=== PATIENT | female | born 1970 | race Caucasian/White ===

== ENCOUNTER 2019-04-24 09:42 | Outpatient (CLI) | payer MEDICARE, MEDICAID, SELFPAY ==
--- NOTE | 2019-04-24 09:55 | ECG_ITS ---
Measurements Intervals [place] Rate: 72 P: 29 [place]: 154 QRS: 68 QRSD: 89 T: 43 QT: 369 QTc: 406 Interpretive Statements SINUS RHYTHM NORMAL ECG Electronically Signed On 04-24-2019 11:16:22 [employer]LECTRIC [employer]OWER [employer] EXAMINER by Elvin Miranda D.O.
[2019-04-24 10:13] LABS: Blood Urea Nitrogen 22 mg/dL (7-17); Calcium 9.4 mg/dL (8.4-10.2); Carbon Dioxide 26 mmol/L (22-30); Chloride 108 mmol/L (98-107); Estimated Glomerular Filt Rate 52; Glucose 98 mg/dL (65-105); Potassium 4.5 mmol/L (3.4-5.0); Sodium 142 mmol/L (137-145)
== END 2019-04-24 09:43 | disposition home or self-care (01) ==
PROVIDERS: PCP Student in an Organized Health Care Education/Training Program; Visit Provider Anesthesiology
DX: E78.00 Pure hypercholesterolemia, unspecified (principal); Z51.81 Encounter for therapeutic drug level monitoring
CPT/HCPCS: 36415; 80048; 93005

== ENCOUNTER 2019-04-29 02:02 | Day surgery (SDC) | payer MEDICARE, MEDICAID, SELFPAY ==
[2019-04-23 08:10] VITALS: BMI 30.7
--- NOTE | 2019-04-28 15:52 | HP_ITS ---
DATE OF SERVICE: HISTORY: A 49-year-old complaining of sinus infection. She is complaining about pressure and pain in her face. She has a cough and a sore throat. Her nose is congested. She lost her sense of smell. She cannot breathe through her nose. She got a CT scan which showed opacification of the right sinus. REVIEW OF SYSTEMS: Unremarkable. PHYSICAL EXAMINATION: CHEST: Clear. HEART: Without murmurs. ABDOMEN: Soft. EXTREMITIES: Negative. IMAGING: CAT scan shows complete opacification of the right maxillary sinus with tissue occluding through the right osteomeatal complex. PLAN: Right D I MT: Cee
--- NOTE | 2019-04-29 06:10 | WPDHPUPDATE1 ---
History and Physical Update Update Date/Time: 04/29/19 06:10 History and Physical has been reviewed, including an updated exam of the patient. There are NO changes in the patient's condition. Risks, benefits, and alternatives have been discussed and questions answered. Patient agrees to proceed fess
[2019-04-29 07:29] VITALS: BP 113/73; PULSE 81; RESP 16; TEMP 36.3; O2SAT 100
[2019-04-29] MEDS: LACTATED RINGERS 1,000 ML 30 ML IV CONT (07:40)
--- NOTE | 2019-04-29 07:46 | WPDANESEPPF ---
Anes - Initial Pre Proc Eval Procedure: Operation Date: 04/29/19 09:00 Proposed Procedures p Right Functional Endoscopic Sinus Surgery - Jose L Del Valle MD Date/Time: 04/29/19 07:46 Surgeon: Jose L Del Valle MD Pre Op Diagnosis: Chronic sinusitis Patient Data Age: 49 Gender: F Height: 5 ft 5 in Weight: 83.91 kg Allergies Allergy/AdvReac Type Severity Reaction Status Date / Time Sulfa (Sulfonamide Allergy Unknown Hives Verified 04/23/19 08:12 Antibiotics) morphine AdvReac Unknown severe Verified 04/23/19 08:12 vomiting Home Medications Medication Instructions Recorded Confirmed Type albuterol sulfate 90 mcg/actuation 1 inhalation INHALATION Q4H PRN 03/22/19 04/23/19 History aerosol inhaler allopurinol 300 mg tablet 300 mg PO DAILY 03/22/19 04/23/19 History aripiprazole 400 mg intramuscular 400 mg IM MONTHLY each 03/22/19 04/23/19 History suspension,extended release biotin 1 mg capsule 1 mg PO DAILY 03/22/19 04/23/19 History bupropion HCl 150 mg 24 hr tablet, 150 mg PO QAM 03/22/19 04/23/19 History extended release calcium carbonate 500 mg (1,250 1 tablet PO DAILY 03/22/19 04/23/19 History mg)-vitamin D3 400 unit tablet cyanocobalamin (vitamin B-12) 500 500 mcg PO DAILY 03/22/19 04/23/19 History mcg tablet desvenlafaxine succinate 100 mg 100 mg PO DAILY 03/22/19 04/23/19 History tablet,extended release 24 hr levothyroxine 125 mcg tablet 125 mcg PO DAILY 03/22/19 04/23/19 History linaclotide 145 mcg capsule 145 mcg PO DAILY 03/22/19 04/23/19 History multivitamin 1 tablet PO DAILY 03/22/19 04/23/19 History oxycodone-acetaminophen 10 mg-325 1 tablet PO Q8H PRN 03/22/19 04/23/19 History mg tablet simvastatin 20 mg tablet 20 mg PO DAILY 03/22/19 04/23/19 History sumatriptan succinate 100 mg tablet 100 mg PO DIRECTED PRN 03/22/19 04/23/19 History vitamin E 200 unit capsule 200 unit PO DAILY 03/22/19 04/23/19 History furosemide 40 mg tablet 40 mg PO BID 03/24/19 04/23/19 History modafinil 200 mg tablet 200 mg PO QAM 03/24/19 04/23/19 History potassium chloride 20 mEq 20 meq PO DAILY 03/24/19 04/23/19 History tablet,extended release modafinil 100 mg PO QNOON 04/23/19 04/23/19 History Patient hx anesthesia problems: none Family hx anesthesia problems: none [facility] Past Medical History Medical History (Updated 04/29/19 @ 07:48 by Dm Crump MD) Anxiety Depression Diabetes Narcolepsy Status post nephrectomy Surgical History Surgical History (Updated 04/29/19 @ 07:48 by Dm Crump MD) H/O gastric bypass Social History Social History Social History: pt stated smoke a half pack a day Smoking packs per day: 1.5 Smoking cigarettes per day: 30.0 Smoking status: Current every day smoker Anes - Eval Final PreProcedure Day of Procedure 04/29/19 07:46 Patient weight: obese Heart: regular rate and rhythm Lungs: clear to auscultation Airway: Mallampati scale class II Neurological: alert and oriented Last oral intake: >/= 8 hours ASA classification: III Emergent: no Anesthetic plan: proceed Anesthesia type and monitoring: general ETT and standard monitoring Informed Consent: The patient's anesthetic plan and its attendant risks and benefits were discussed with the patient/family/POA. Questions were solicited and answers provided to the satisfaction of the patient/family/POA.
[2019-04-29] MEDS: ONDANSETRON INJ 4 MG/2 ML VIAL IV PUSH (08:35)
[2019-04-29] MEDS: LIDO 1%/EPINEPHRINE 1:100,000 20 ML VIAL 3 ML INFILTRATE (08:58)
--- NOTE | 2019-04-29 09:12 | PM.PROC ---
Procedure Note - Detailed Date of procedure: 04/29/19 Pre-op diagnosis: Chronic sinusitis Procedure performed: Testing patient was prepped and draped in fashion general anesthesia the nose packed with Afrin and cocaine impregnated cottonoids. On the right side the middle turbinate was medialized the inferior turbinate was medialized large nasal antral window was created and the natural ostia and a large amount of pus was aspirated from the right maxillary sinus then packed with the hem he derm patient awakened returned to recovery in good condit Anesthesia: GLMA Surgeon: Jose L Del Valle MD Estimated blood loss (mL): 25 Drains: No Packing: No Pathology: none sent Complications: No immediate complications Condition: stable Disposition: PACU
[2019-04-29 09:17] VITALS: BP 103/54; PULSE 87; RESP 11; TEMP 36.3; O2SAT 100
[2019-04-29 09:30] VITALS: BP 99/57; PULSE 77; RESP 11; O2SAT 100
[2019-04-29 09:50] VITALS: BP 114/65; PULSE 76
[2019-04-29 10:20] VITALS: BP 114/69; PULSE 76
== END 2019-04-29 10:41 | disposition home or self-care (01) ==
PROVIDERS: PCP Student in an Organized Health Care Education/Training Program; Visit Provider Otolaryngology
PROC: (CPT 31256; principal; 2019-04-29 09:00)
DX: J32.9 Chronic sinusitis, unspecified (principal); E11.9 Type 2 diabetes mellitus without complications; G47.419 Narcolepsy without cataplexy; F41.8 Other specified anxiety disorders; Z90.5 Acquired absence of kidney; Z98.84 Bariatric surgery status; F17.210 Nicotine dependence, cigarettes, uncomplicated; E66.9 Obesity, unspecified; Z68.32 Body mass index [BMI] 32.0-32.9, adult
CPT/HCPCS: 31256; A9270; J0131; J0330; J1100; J2250; J2405; J2704; J3010; J7120

== ENCOUNTER 2019-06-11 17:10 | Emergency (ER) | payer MEDICARE, MEDICAID, SELFPAY ==
--- NOTE | ~2019-06-11 | XR_ITS ---
EXAMINATION: XR chest 2V DATE: 06/11/2019 17:46 INDICATION: Shortness of breath and chest pain TECHNIQUE: PA and lateral views of the chest are obtained. COMPARISON: 05/03/2018 FINDINGS: The lungs are free of acute opacities. There is no pleural effusion or pneumothorax. The ca rdiomediastinal silhouette is normal. There is mild thoracic spondylosis. Electrodes project in the c entral spinal canal of the thoracic spine. IMPRESSION: 1. No acute cardiopulmonary abnormality. Reviewed, dictated and finalized at location A.
[2019-06-11 17:19] VITALS: BP 110/76; PULSE 88; RESP 18; O2SAT 99
--- NOTE | 2019-06-11 17:19 | ECG_ITS ---
Measurements Intervals [place] Rate: 81 P: 53 [place]: 155 QRS: 39 QRSD: 84 T: 46 QT: 380 QTc: 443 Interpretive Statements SINUS RHYTHM BASELINE ARTIFACT- I, II, AVR, AVL NORMAL ECG Electronically Signed On 06-12-2019 7:54:58 CDT by Elvin Miranda D.O.
--- NOTE | 2019-06-11 17:21 | ED.ABDPAIN ---
HPI - Abdominal Pain General Chief Complaint: Chest Pain Stated Complaint: CP Time Seen by Provider: 06/11/19 17:12 Source: patient Mode of arrival: ambulatory Limitations: no limitations History of Present Illness HPI narrative: Patient is a 49-year-old female who presents to emergency department for evaluation of left-sided chest pain that began today patient notes that she had had 4 episodes of emesis followed by left-sided chest pain that is a sharp stabbing pain that is worse with breathing and movement patient denies any current nausea or abdominal pain patient denies similar occurrence in the past patient denies any URI symptoms. Patient does not radiate Related Data Home Medications Medication Instructions Recorded Confirmed albuterol sulfate 90 mcg/actuation 1 inhalation INHALATION Q4H PRN 03/22/19 04/23/19 aerosol inhaler allopurinol 300 mg tablet 300 mg PO DAILY 03/22/19 04/29/19 aripiprazole 400 mg intramuscular 400 mg IM MONTHLY each 03/22/19 04/23/19 suspension,extended release biotin 1 mg capsule 1 mg PO DAILY 03/22/19 04/29/19 bupropion HCl 150 mg 24 hr tablet, 150 mg PO QAM 03/22/19 04/29/19 extended release calcium carbonate 500 mg (1,250 1 tablet PO DAILY 03/22/19 04/29/19 mg)-vitamin D3 400 unit tablet cyanocobalamin (vitamin B-12) 500 500 mcg PO DAILY 03/22/19 04/29/19 mcg tablet desvenlafaxine succinate 100 mg 100 mg PO DAILY 03/22/19 04/29/19 tablet,extended release 24 hr levothyroxine 125 mcg tablet 125 mcg PO DAILY 03/22/19 04/29/19 linaclotide 145 mcg capsule 145 mcg PO DAILY 03/22/19 04/29/19 multivitamin 1 tablet PO DAILY 03/22/19 04/29/19 oxycodone-acetaminophen 10 mg-325 1 tablet PO Q8H PRN 03/22/19 04/23/19 mg tablet simvastatin 20 mg tablet 20 mg PO DAILY 03/22/19 04/29/19 sumatriptan succinate 100 mg tablet 100 mg PO DIRECTED PRN 03/22/19 04/29/19 vitamin E 200 unit capsule 200 unit PO DAILY 03/22/19 04/29/19 furosemide 40 mg tablet 40 mg PO BID 03/24/19 04/29/19 modafinil 200 mg tablet 200 mg PO QAM 03/24/19 04/29/19 potassium chloride 20 mEq 20 meq PO DAILY 03/24/19 04/29/19 tablet,extended release modafinil 100 mg PO QNOON 04/23/19 04/29/19 Allergies Allergy/AdvReac Type Severity Reaction Status Date / Time Sulfa (Sulfonamide Allergy Unknown Hives Verified 06/11/19 17:22 Antibiotics) morphine AdvReac Unknown severe Verified 06/11/19 17:22 vomiting Review of Systems Review of Systems: All systems reviewed & are unremarkable except as noted in HPI and below PMFSH Past Medical History Medical History Anxiety Depression Diabetes Narcolepsy Status post nephrectomy Surgical History Surgical History H/O gastric bypass Social History Social History Social History: pt stated smoke a half pack a day Smoking packs per day: 1.5 Smoking cigarettes per day: 30.0 Smoking status: Current every day smoker Exam Narrative: Exam Narrative: GENERAL: Well-appearing, well-nourished, and in no acute distress. HEAD: Normocephalic, atraumatic. EYES: PERRLA and EOMI. ENT: Nares clear, no rhinorrhea or epistaxis. Mucous membranes moist. CHEST: Clear to auscultation. No respiratory distress. No wheezes rales or rhonchi HEART: Regular rate and rhythm. No murmur heard. Normal peripheral pulses. ABDOMEN: Soft, nontender, nondistended EXTREMITIES: Normal range of motion. No edema. SKIN: Warm, dry, no rash. NEURO: No focal deficits. Alert and oriented x3. PSYCH: Normal mood and affect. Course Course Emergency Course: Patient in the room aware of case findings treatment plan and diagnosis advised to stay for 3-hour troponin however is refusing and would like to leave understands the risk and will sign out AMA Vital Signs Vital signs: Vital Signs Pulse Rate 88 06/11/19 17:19 Re
[2019-06-11 17:22] VITALS: PULSE 83
[2019-06-11] MEDS: ONDANSETRON INJ 4 MG/2 ML VIAL IV PUSH (17:33)
[2019-06-11 17:34] LABS: Basophils Absolute Auto 0.1 K/mm3 (0.0-0.1); Basophils Percent Auto 0.8 % (0.2-1.2); Eosinophils Absolute Auto 0.2 K/mm3 (0-0.3); Eosinophils Percent Auto 3.1 % (0-4.4); Hematocrit 39.7 % (37.0-47.0); Immature Granulocyte Absolute 0.01 K/mm3 (0.00-0.031); Immature Granulocyte Percent A 0.2 % (0-0.5); Lymphocytes Absolute Auto 1.94 K/mm3 (0.9-3.2); Lymphocytes Percent Auto 30.3 % (18.3-44.2); Mean Corpuscular HGB Conc 32.7 g/dl (32-36); Mean Corpuscular Hemoglobin 33.2 pg (26-34); Mean Corpuscular Volume 101.3 fl (80-100); Mean Platelet Volume 10.1 fl (7.4-10.4); Monocytes Absolute Auto 0.3 K/mm3 (0.1-0.6); Monocytes Percent Auto 4.2 % (2.6-8.5); Neutrophils Absolute Auto 3.9 K/mm3 (1.3-6.7); Neutrophils Percent Auto 61.4 % (45.5-73.1); Platelet Count Result 249 k/mm3 (150-375); Red Blood Count 3.92 M/mm3 (4.2-5.4); Red Cell Distribution Width 13.2 % (11.5-14.5); White Blood Count 6.4 K/mm3 (4.5-10.0)
[2019-06-11 17:44] LABS: INR 0.9; Prothrombin Time 11.7 Seconds (11.1-14.7)
[2019-06-11 17:45] LABS: Partial Thromboplastin Time 26.9 SECONDS (22.3-36.8)
[2019-06-11 17:47] LABS: D Dimer 0.33 ug/mL (<0.48)
[2019-06-11 17:49] LABS: Alanine Aminotransferase 23 U/L (4-35); Albumin Level 4.4 g/dL (3.5-5.1); Alkaline Phosphatase 144 U/L (38-126); Aspartate Amino Transferase 27 U/L (14-36); Bilirubin,Total 0.3 mg/dL (0.2-1.3); Blood Urea Nitrogen 18 mg/dL (7-17); Calcium 9.7 mg/dL (8.4-10.2); Carbon Dioxide 28 mmol/L (22-30); Chloride 108 mmol/L (98-107); Estimated CRCL calculation 64 ml/min; Estimated Glomerular Filt Rate 58; Glucose 92 mg/dL (65-105); Lipase 140 U/L (23-300); Potassium 3.7 mmol/L (3.4-5.0); Sodium 139 mmol/L (137-145)
[2019-06-11 18:00] LABS: Troponin I < 0.012 ng/mL (0.000-0.034)
[2019-06-11 18:06] VITALS: BP 105/72; PULSE 81; RESP 15; TEMP 36.1; O2SAT 100
[2019-06-11 18:53] VITALS: BP 114/72; PULSE 75; RESP 12; O2SAT 100
== END 2019-06-11 19:34 | disposition left against medical advice (07) ==
PROVIDERS: Emergency Medicine Emergency Medical Services; Emergency Provider Emergency Medicine; PCP Student in an Organized Health Care Education/Training Program
DX: R07.9 Chest pain, unspecified (principal); F41.9 Anxiety disorder, unspecified; F32.9 Major depressive disorder, single episode, unspecified; E11.9 Type 2 diabetes mellitus without complications; Z90.5 Acquired absence of kidney; Z98.84 Bariatric surgery status; F17.210 Nicotine dependence, cigarettes, uncomplicated
CPT/HCPCS: 36415; 71046; 80053; 83690; 84484; 85025; 85380; 85610; 85730; 93005; 96365; 96375; 99284; J0131; J2405

== ENCOUNTER 2019-10-22 09:17 | Outpatient (CLI) | payer MEDICARE, MEDICAID, SELFPAY ==
--- NOTE | ~2019-10-22 | CT_ITS ---
EXAMINATION: CT sinus wo con DATE: 10/22/2019 09:32 INDICATION: Chronic congestion, chronic sinusitis TECHNIQUE: Computed tomography (CT) of the paranasal sinuses was performed without contrast. Iterativ e reconstruction technique was employed. Exam dose: 261.91 mGy-cm total exam DLP. COMPARISON: None FINDINGS: There is rightward deviation of the anterior portion of the nasal septum and mild leftward deviation of the mid to posterior aspect of the septum. There is intralamellar cell and malik bullosa of the left middle nasal turbinate. There is soft tiss ue swelling of the nasal turbinates, greater on the left. There is soft tissue thickening in the lateral aspect of the right sphenoid sinus. There is minimal m id to posterior right ethmoid air cell mucoperiosteal thickening. There is minimal mucosal thickening at the right maxillary ostium. The ostiomeatal units are otherwise patent. The paranasal sinuses are otherwise normally developed and aerated. The mastoid air cells are normally developed and aerated. Middle and inner ear apparatus appear normal. IMPRESSION: Nasal septum deviation Interlamellar cell and malik bullosa of left middle nasal turbinate Minimal mucosal thickening of right maxillary ostium; ostiomeatal units are otherwise patent Minimal focal soft tissue thickening of the right ethmoid air cells and prominent soft tissue thicken ing at lateral aspect of the right sphenoid sinus Reviewed, dictated and finalized at Location [facility]. Reviewed, dictated and finalized at location A. IMPRESSION: Nasal septum deviation Interlamellar cell and malik bullosa of left middle nasal turbinate Minimal mucosal thickening of right maxillary ostium; ostiomeatal units are oth erwise patent Minimal focal soft tissue thickening of the right ethmoid air cells and promine nt soft tissue thickening at lateral aspect of the right sphenoid sinus
== END 2019-10-22 09:18 | disposition home or self-care (01) ==
LOC: ANHIMG 09:17
PROVIDERS: PCP Student in an Organized Health Care Education/Training Program; Visit Provider Otolaryngology
DX: J32.9 Chronic sinusitis, unspecified (principal); J34.89 Other specified disorders of nose and nasal sinuses; J34.2 Deviated nasal septum; J34.3 Hypertrophy of nasal turbinates
CPT/HCPCS: 70486

== ENCOUNTER 2019-12-12 16:29 | Emergency (ER) | payer MEDICARE, MEDICAID, SELFPAY ==
--- NOTE | ~2019-12-12 | XR_ITS ---
EXAMINATION: XR chest 2V DATE: 12/12/2019 17:30 INDICATION: Cough, shortness of breath and chest pain TECHNIQUE: PA and lateral views of the chest were obtained. COMPARISON: Chest radiograph dated 06/11/2019 FINDINGS: The lungs remain clear with no focal airspace opacities, pulmonary edema, pleural effusion or pneumot horax. The cardiomediastinal silhouette is normal. Spinal stimulator lead projecting over the central canal the lower thoracic spine. IMPRESSION: 1. No acute cardiopulmonary disease. Reviewed, dictated and finalized at location A.
[2019-12-12 16:34] VITALS: BP 105/72; PULSE 99; RESP 18; TEMP 37.2; O2SAT 98
--- NOTE | 2019-12-12 16:39 | ED.URI ---
HPI - URI/Sore Throat General Chief Complaint: Upper Respiratory Infection Stated Complaint: sob, cough Time Seen by Provider: 12/12/19 16:39 History of Present Illness HPI Narrative: 49 yo female presents to the ED from home c/o multiple symptoms. She has chronic SOB, which has been been worse for a few days. She also reports chronic nausea, voming, diarrhea, and fatigue. She says that she has not addressesed these issues with her PCP because she does not think that they are on the same page . She has an appointment with her hydropress operator in a few days. Related Data Home Medications Medication Instructions Recorded Confirmed albuterol sulfate 90 mcg/actuation 1 inhalation INHALATION Q4H PRN 03/22/19 09/22/19 aerosol inhaler allopurinol 300 mg tablet 300 mg PO DAILY 03/22/19 09/22/19 aripiprazole 400 mg intramuscular 400 mg IM MONTHLY each 03/22/19 09/22/19 suspension,extended release bupropion HCl 150 mg 24 hr tablet, 150 mg PO QAM 03/22/19 09/22/19 extended release calcium carbonate 500 mg (1,250 1 tablet PO DAILY 03/22/19 09/22/19 mg)-vitamin D3 400 unit tablet desvenlafaxine succinate 100 mg 100 mg PO DAILY 03/22/19 09/22/19 tablet,extended release 24 hr levothyroxine 125 mcg tablet 125 mcg PO DAILY 03/22/19 09/22/19 linaclotide 145 mcg capsule 145 mcg PO DAILY 03/22/19 09/22/19 multivitamin 1 tablet PO DAILY 03/22/19 09/22/19 oxycodone-acetaminophen 10 mg-325 1 tablet PO Q8H PRN 03/22/19 09/22/19 mg tablet simvastatin 20 mg tablet 20 mg PO DAILY 03/22/19 09/22/19 sumatriptan succinate 100 mg tablet 100 mg PO DIRECTED PRN 03/22/19 09/22/19 furosemide 40 mg tablet 40 mg PO BID 03/24/19 09/22/19 potassium chloride 20 mEq 20 meq PO DAILY 03/24/19 09/22/19 tablet,extended release Allergies Allergy/AdvReac Type Severity Reaction Status Date / Time Sulfa (Sulfonamide Allergy Unknown Hives Verified 12/12/19 16:39 Antibiotics) clindamycin AdvReac Severe Nausea and Verified 12/12/19 16:39 Vomiting morphine AdvReac Unknown severe Verified 12/12/19 16:39 vomiting Review of Systems Review of Systems: All systems reviewed & are unremarkable except as noted in HPI and below Constitutional: Constitutional: Reports fatigue and Denies fever(s) ENT: Reports dizziness Cardiovascular: Cardiovascular: Denies chest pain Respiratory: Respiratory: Reports chest congestion and Reports dyspnea Gastrointestinal: Gastrointestinal: Reports diarrhea, Reports nausea and Reports vomiting Genitourinary: Genitourinary: Reports nocturia Neurologic: Reports weakness PMFSH Past Medical History Medical History Anxiety Depression Gallbladder & bile duct stone with obstruction Kidney abscess Narcolepsy Status post nephrectomy Surgical History Surgical History H/O gastric bypass Social History Social History Social History: pt stated smoke a half pack a day Smoking packs per day: 1.5 Smoking cigarettes per day: 30.0 Smoking status: Current every day smoker Exam Const: General: no acute distress and alert Nutritional Appearance: well nourished Orientation/consciousness: patient oriented x3 HENMT: Head: normal to inspection Neck: Neck: normal visual inspection and no lymphadenopathy Chest: Chest palpation & inspection: no tenderness Resp: Effort & Inspection: normal respiratory effort Auscultation: clear to auscultation bilaterally, no rales, no rhonchi and no wheezes Cardio: Jugular venous distension: no JVD Rate: regular rate Rhythm: regular rhythm Heart sounds: no murmurs GI: Inspection: non-distended GI Palp: Yes Soft to palpation and No Tenderness to palpation present (GI) Skin: General skin exam: normal color Neuro: General: patient oriented x3 and moves all extremities Speech: normal speech E
--- NOTE | 2019-12-12 16:41 | ECG_ITS ---
Measurements Intervals [place] Rate: 86 P: 56 [place]: 154 QRS: 24 QRSD: 92 T: 33 QT: 367 QTc: 440 Interpretive Statements SINUS RHYTHM NORMAL ECG Electronically Signed On 12-12-2019 17:00:11 CDT by Elvin Miranda D.O.
[2019-12-12 16:55] LABS: Basophils Percent Auto 0.9 % (0.2-1.2); Eosinophils Absolute Auto 0.2 K/mm3 (0-0.3); Hematocrit 35.2 % (37.0-47.0); Hemoglobin 11.7 g/dL (12.0-15.0); Immature Granulocyte Absolute 0.01 K/mm3 (0.00-0.031); Immature Granulocyte Percent A 0.2 % (0-0.5); Lymphocytes Absolute Auto 1.89 K/mm3 (0.9-3.2); Lymphocytes Percent Auto 41.4 % (18.3-44.2); Mean Corpuscular HGB Conc 33.2 g/dl (32-36); Mean Corpuscular Hemoglobin 34.1 pg (26-34); Mean Corpuscular Volume 102.6 fl (80-100); Mean Platelet Volume 9.8 fl (7.4-10.4); Monocytes Absolute Auto 0.2 K/mm3 (0.1-0.6); Neutrophils Absolute Auto 2.2 K/mm3 (1.3-6.7); Neutrophils Percent Auto 47.5 % (45.5-73.1); Platelet Count Result 214 k/mm3 (150-375); Red Blood Count 3.43 M/mm3 (4.2-5.4); Red Cell Distribution Width 14.7 % (11.5-14.5); White Blood Count 4.6 K/mm3 (4.5-10.0)
[2019-12-12] MEDS: ALBUTEROL SULFATE NEB 2.5 MG/0.5 ML INH 5 MG INHALATION (17:02)
[2019-12-12 17:03] VITALS: PULSE 85; RESP 12
[2019-12-12] MEDS: IPRATROPIUM BR 0.02% INH SOLN 0.5 MG/2.5 ML VIAL INHALATION (17:03)
[2019-12-12 17:04] LABS: Anion Gap 7 mmol/L (8-16); Blood Urea Nitrogen 23 mg/dL (7-17); Carbon Dioxide 25 mmol/L (22-30); Chloride 110 mmol/L (98-107); Estimated CRCL calculation 47 ml/min; Estimated Glomerular Filt Rate 43; Glucose 120 mg/dL (65-105); Potassium 4.1 mmol/L (3.4-5.0); Sodium 142 mmol/L (137-145)
[2019-12-12] MEDS: METOCLOPRAMIDE HCL INJ 10 MG/2 ML VIAL IV PUSH (17:06)
[2019-12-12] MEDS: SODIUM CHLORIDE 0.9% IV 1,000 ML 999 ML IV CONT (17:06)
[2019-12-12 17:08] VITALS: BP 119/60; PULSE 94; RESP 20; O2SAT 95
[2019-12-12 17:50] VITALS: BP 109/61; PULSE 84; RESP 20; O2SAT 94
[2019-12-12 18:49] VITALS: BP 95/58; PULSE 87; RESP 20; O2SAT 95
[2019-12-12 19:19] VITALS: BP 101/55; PULSE 88; RESP 20; O2SAT 97
== END 2019-12-12 19:20 | disposition home or self-care (01) ==
PROVIDERS: Emergency Provider Emergency Medicine; PCP Student in an Organized Health Care Education/Training Program
DX: J06.9 Acute upper respiratory infection, unspecified (principal); E86.0 Dehydration; F41.9 Anxiety disorder, unspecified; F32.9 Major depressive disorder, single episode, unspecified; G47.419 Narcolepsy without cataplexy; Z90.5 Acquired absence of kidney; Z98.84 Bariatric surgery status; F17.210 Nicotine dependence, cigarettes, uncomplicated
CPT/HCPCS: 36415; 71046; 80048; 85025; 93005; 94640; 96361; 96374; 99284; J2765; J7030

== ENCOUNTER 2020-01-01 10:37 | Emergency (ER) | payer MEDICARE, MEDICAID, SELFPAY ==
--- NOTE | ~2020-01-01 | XR_ITS ---
EXAMINATION: XR hand RT min 3V DATE: 01/01/2020 11:00 INDICATION: Dorsal right hand pain and swelling post fall TECHNIQUE: Posteroanterior, oblique and lateral views of the right hand were obtained. COMPARISON: None. FINDINGS: Bone alignment is normal. No fracture. Polyarticular osteoarthritis, mild to moderate at the distal i nterphalangeal joints and mild at the triscaphe, first carpometacarpal, first interphalangeal and at the proximal interphalangeal joints. Osteopenia. Soft tissues are unremarkable. IMPRESSION: 1. No acute osseous abnormality. 2. Polyarticular osteoarthritis, mild to moderate at the distal interphalangeal joints. Reviewed, dictated and finalized at location A.
[2020-01-01 10:46] VITALS: BP 114/70; PULSE 84; RESP 12; TEMP 36.3; O2SAT 100
--- NOTE | 2020-01-01 11:09 | ED.UPPEXIN ---
HPI - Extremity Injury (Upper) General Chief Complaint: Extremity Injury, Upper Stated Complaint: R HAND/ARM/ELBOW INJURY Source: patient and RN notes reviewed Limitations: no limitations History of Present Illness HPI narrative: The patient on several medications, presents with right hand injury. Patient states she has a short history of right hand pain is mild, worse with motion, better at rest and located at the metacarpal/knuckles. She states prior to arrival , she slipped and fell to the ground hyper flexing her hand; no bleeding, deformity. Related Data Home Medications Medication Instructions Recorded Confirmed albuterol sulfate 90 mcg/actuation 1 inhalation INHALATION Q4H PRN 03/22/19 01/01/20 aerosol inhaler allopurinol 300 mg tablet 300 mg PO DAILY 03/22/19 01/01/20 aripiprazole 400 mg intramuscular 400 mg IM MONTHLY each 03/22/19 01/01/20 suspension,extended release bupropion HCl 150 mg 24 hr tablet, 150 mg PO QAM 03/22/19 01/01/20 extended release calcium carbonate 500 mg (1,250 1 tablet PO DAILY 03/22/19 01/01/20 mg)-vitamin D3 400 unit tablet desvenlafaxine succinate 100 mg 100 mg PO DAILY 03/22/19 01/01/20 tablet,extended release 24 hr levothyroxine 125 mcg tablet 125 mcg PO DAILY 03/22/19 01/01/20 linaclotide 145 mcg capsule 145 mcg PO DAILY 03/22/19 01/01/20 multivitamin 1 tablet PO DAILY 03/22/19 01/01/20 oxycodone-acetaminophen 10 mg-325 1 tablet PO Q8H PRN 03/22/19 01/01/20 mg tablet simvastatin 20 mg tablet 20 mg PO DAILY 03/22/19 01/01/20 sumatriptan succinate 100 mg tablet 100 mg PO DIRECTED PRN 03/22/19 01/01/20 furosemide 40 mg tablet 40 mg PO BID 03/24/19 01/01/20 potassium chloride 20 mEq 20 meq PO DAILY 03/24/19 01/01/20 tablet,extended release Allergies Allergy/AdvReac Type Severity Reaction Status Date / Time Sulfa (Sulfonamide Allergy Unknown Hives Verified 01/01/20 10:43 Antibiotics) clindamycin AdvReac Severe Nausea and Verified 01/01/20 10:43 Vomiting morphine AdvReac Unknown severe Verified 01/01/20 10:43 vomiting Review of Systems Review of Systems: Narrative: General/Constitutional: No weight loss,fever Eyes: N0: Redness,discharge Ears/Nose/Throat: No: Epistaxis,ear discharge Respiratory: Denies: Hemoptysis Gastrointestinal: No Vomiting, Bleeding-rectal Skin: No Lumps, eruption Neurologic: No Focal Weakness,Sz Hematologic: Denies: Petechiae/Purpura Psychiatric: No: Suicida ideationl All Other Systems: Reviewed and Negative [facility] Past Medical History Medical History Anxiety Depression Gallbladder & bile duct stone with obstruction Kidney abscess Narcolepsy Status post nephrectomy Surgical History Surgical History H/O gastric bypass Social History Social History Social History: pt stated smoke a half pack a day Smoking packs per day: 1.5 Smoking cigarettes per day: 30.0 Smoking status: Current every day smoker Comments At time of signature, agree with nursing past medical, surgical, social and family history. There is no relevant family history pertinent to the presenting complaint Exam Narrative: Exam Narrative: General Appearance: Well appearing, Conjunctiva clear Ears: External ear normal, Auditory canal normal Nose: Normal nose, Nares clear Mouth/Throat: Normal appearing, Normal lips Supple Respiratory: Airway patent, No respiratory distress MS-hand: Normal strength (mostly intact, limited flexion/extension by pain), Tenderness metacarpals, with mild decreased ROM), Swelling-extensor, Other (no anterior drawer, no collateral laxity, Skin: Warm, Dry, Normal color Neurological: A&O x3, , Normal affect Course Course Emergency Course: Films visualized, interpreted by radiologist, agree, normal see report Vital Signs Vital sign
== END 2020-01-01 11:33 | disposition home or self-care (01) ==
PROVIDERS: Emergency Provider Emergency Medicine; PCP Student in an Organized Health Care Education/Training Program
DX: S60.221A Contusion of right hand, initial encounter (principal); W01.0XXA Fall on same level from slipping, tripping and stumbling without subsequent striking against object, initial encounter; M19.041 Primary osteoarthritis, right hand; F17.210 Nicotine dependence, cigarettes, uncomplicated; Z98.84 Bariatric surgery status; Z90.5 Acquired absence of kidney
CPT/HCPCS: 73130; 99213; G0463

== ENCOUNTER 2020-05-26 14:24 | Outpatient (CLI) | payer MEDICARE, MEDICAID, SELFPAY ==
--- NOTE | 2020-05-26 16:31 | P.PCNPFT_ITS ---
PFT Interpretation This is a pulmonary function test with pre and post-bronchodilator spirometry, plethysmography and diffusing capacity. The test was performed and results interpreted in accordance with the 2019 and 2005 ATS/ERS Task Force guidelines respectively using the Global Lung Function Initiative-2012 reference equations. Patient demonstrated good effort and c ooperation. Reproducibility criteria were met. The quality of the pre bronchodilator spirometry maneuver was Grade A and post bronchodilator spirometry maneuver was Grade A. Findings: Spirometry: The contour of the inspiratory and expiratory flow tracing are normal. The pre bronchodilator FVC is 2.92 L, 83% predicted. The pre bronchodilator FEV1 is 2.42 L, 86% predicted. The FEV1: FVC ratio is 83%. The post bronchodilator FVC is 2.87 L, representing a 2% decrease. The post bronchodilator FEV1 is 2.30 L, representing a 5% decrease. Plethysmography: The total lung capacity is 4.27 L, 82% predicted. The functional residual capacity is 2.16 L, 74% predicted. The residual volume is 1.25 L, 67% predicted. Diffusing capacity: The absolute diffusion capacity is 18.5, 81% predicted. The diffusing capacity corrected for alveolar volume is 4.43, 98% predicted. Impression: The spirometry is normal without evidence of an obstructive abnormality. There is no significant improvement after inhaling a single dose of albuterol. The lung volumes are normal. The diffusing capacity is normal. There are no prior studies for comparison
== END 2020-05-26 14:25 | disposition home or self-care (01) ==
PROVIDERS: PCP Student in an Organized Health Care Education/Training Program; Visit Provider Allergy & Immunology
DX: J45.40 Moderate persistent asthma, uncomplicated (principal); J44.9 Chronic obstructive pulmonary disease, unspecified
CPT/HCPCS: 94060; 94726; 94729

== ENCOUNTER → 2020-10-13 01:13 | Outpatient (CLI) | payer MEDICARE, MEDICAID, SELFPAY ==
[2020-10-14 02:15] LABS: SARS-CoV-2 RNA PCR Negative
== END ==
PROVIDERS: PCP Student in an Organized Health Care Education/Training Program; Visit Provider Student in an Organized Health Care Education/Training Program
DX: Z20.822 Contact with and (suspected) exposure to COVID-19 (principal); J02.9 Acute pharyngitis, unspecified; R05 Cough; R51.9 Headache, unspecified
CPT/HCPCS: C9803; U0003; U0005

== ENCOUNTER 2021-02-27 01:15 | Day surgery (SDC) | payer MEDICARE, MEDICAID, SELFPAY ==
[2021-02-16 14:05] VITALS: BMI 28.2
--- NOTE | 2021-02-16 15:28 | PC.NURSE ---
Report to the Outpatient Waiting Room, entrance under the green pavilion located off [facility], at time __0600 on date __03/03/21 . OR Time: . - You and your visitor will be asked a series of questions to screen for COVID 19 for your protection. - A mask is required within the hospital. - Only one visitor is allowed at this time. Patient visitors will be guided where to wait when not with patient. Preoperative COVID Testing Requirements: No COVID Test needed if: (proof is required; if not received patient will have Rapid Test prior to entry) - Patient has received COVID Vaccine at least 14 days prior to procedure date or - Patient has positive COVID test result within last 90 days of surgery date. COVID Test needed if above criteria is not met If not COVID vaccinated a COVID test must be conducted within 72 hours of surgery and patient is asked to isolate self from time of testing until procedure. You will go to the [facility] for your COVID testing. The [facility] site is located at the corner of [address] [facility]. You will only be called if COVID results are positive and your surgeon may reschedule your elective surgery date. Patients may have clear liquids (water, carbonated beverages, clear teas, apple juice) until 3 hours prior to surgery with a maximum of 20 ounces. - No food from midnight until time of surgery - Infants may have breast milk until 4 hours before surgery, infant formula 6 hours prior to surgery. - Children will be allowed to drink immediately following surgery. If applicable, please bring a bottle or sippy cup to assist with drinking. Juice, water, soda, and popsicles are readily available. For infants on formula, please bring formula the day of surgery. Pacifiers are allowed. Take the following medications with a SIP of water the morning of surgery: _BRING NERVE STIM REMOTE. TAKE PERCOCET AND OTHER MEDS FOR PAIN MANAGEMENT NEEDED. IF YOU WISH TO HOLD ALL OTHER MEDS UNTIL AFTER SURGERY DISCUSSED, YOU MAY DO SO Medications to discontinue per physician __DC VITAMINS AND SUPPLEMENTS 3 DAYS BEFORE SURGERY Date to take last dose_02/24/21 Please no make-up, nail sao tomean, hairspray, perfume, deodorant, or body powder the day of surgery. No jewelry (including any body piercings) or valuables the day of surgery, leave them at home. Please take a shower or bath the night before, or the morning of, surgery with an antibacterial soap. Wear comfortable, loose fitting clothing. Children are encouraged to wear pajamas. - Jewelry must be removed prior to entering the operating room. Rings and piercings that are not removed may be cut off. - The hospital will not accept responsibility for valuables. - Please leave all valuables, including medications, at home the day of surgery. If you are going home after surgery, a licensed warehouse driver must drive you home. - NO public transportation without another adult. - We recommend that an adult stay with you for 24 hours following discharge. - We also recommend that you do not drive, make important decision, drink alcoholic beverages, or take any drugs that were not prescribed by your health care provider for at least 24 hours after your discharge time. For Pediatric surgeries, we recommend two adults accompany the child home (only one inside the building at this time). Follow any additional instructions given to you from your surgeon. Telephone instructions given to _CARSON __and asked if any additional questions and then verbalized understanding. Patient advised to call surgeon office or pre surgery nurse liaison [phone] if any additional questions.
--- NOTE | 2021-02-26 10:21 | PM.IMHP ---
H&P: HPI History of Present Illness Date/Time: 02/26/21 10:21 Chief Complaint: Nasal obstruction nasal congestion facial pain facial pressure postnasal drip sphenoid sinusitis nasopharyngeal cyst malik bullosa left septal deviation inferior turbinate hypertrophy Review of Systems Constitutional: Constitutional: Denies fatigue, Denies fever(s) and Denies lethargy Eyes: Eyes: Denies blurry vision and Denies change in vision ENT: Reports as per HPI Cardiovascular: Cardiovascular: Denies chest pain Respiratory: Respiratory: Denies cough Endocrine: Endocrine: Denies fatigue Hematologic/Lymphatic: Hematologic/Lymphatic: Denies easy bleeding, Denies easy bruising and Denies lymphadenopathy Allergic/Immunologic: Allergic/Immunologic: Denies seasonal rhinorrhea [facility] Past Medical History Medical History Anxiety Depression Gallbladder & bile duct stone with obstruction Kidney abscess Narcolepsy Status post nephrectomy Surgical History Surgical History H/O gastric bypass Social History Social History Social History: pt stated smoke a half pack a day Smoking packs per day: 0.05 Smoking cigarettes per day: 1.0 Years smoked: 10 Smoking pack-years: 0.50 Smoking status: Current every day smoker Tobacco type: cigarettes Substance use: never Substance use type: does not use Spiritual care concerns: No Meds Home Medications and Allergies Home Medications Medication Instructions Recorded Confirmed Type albuterol sulfate 90 mcg/actuation 1 inhalation INHALATION Q4H PRN 03/22/19 02/16/21 History aerosol inhaler aripiprazole 400 mg intramuscular 400 mg IM MONTHLY each 03/22/19 02/16/21 History suspension,extended release bupropion HCl 150 mg 24 hr tablet, 150 mg PO QAM 03/22/19 02/16/21 History extended release calcium carbonate 500 mg-vitamin 1 tablet PO DAILY 03/22/19 02/16/21 History D3 10 mcg (400 unit) tablet desvenlafaxine succinate 100 mg 100 mg PO DAILY 03/22/19 02/16/21 History tablet,extended release 24 hr levothyroxine 125 mcg tablet 125 mcg PO DAILY 03/22/19 02/16/21 History linaclotide 145 mcg capsule 145 mcg PO DAILY 03/22/19 02/16/21 History multivitamin 1 tablet PO DAILY 03/22/19 02/16/21 History oxycodone-acetaminophen 10 mg-325 1 tablet PO Q8H PRN 03/22/19 02/16/21 History mg tablet simvastatin 20 mg tablet 20 mg PO DAILY 03/22/19 02/16/21 History sumatriptan succinate 100 mg tablet 100 mg PO DIRECTED PRN 03/22/19 02/16/21 History budesonide-formoterol HFA 160 See Rx Instructions .ROUTE 12/25/20 02/16/21 Rx mcg-4.5 mcg/actuation aerosol .COMPLEX #30.6 g inhaler cyclobenzaprine 10 mg PO Q8-10H PRN 02/16/21 02/16/21 History furosemide 20 mg PO DAILY 02/16/21 02/16/21 History gabapentin 300 mg PO BID 02/16/21 02/16/21 History iron-folic [id number]-biotin 1 cap PO DAILY 02/16/21 02/16/21 History modafinil 200 mg PO BID 02/16/21 02/16/21 History omeprazole 40 mg PO DAILY 02/16/21 02/16/21 History potassium chloride 10 meq PO DAILY 02/16/21 02/16/21 History vitamin B complex [B 1 tablet PO DAILY 02/16/21 02/16/21 History Complex-Vitamin B12] Allergies Allergy/AdvReac Type Severity Reaction Status Date / Time Sulfa (Sulfonamide Allergy Unknown Hives Verified 02/16/21 15:27 Antibiotics) clindamycin AdvReac Severe Nausea and Verified 02/16/21 15:27 Vomiting morphine AdvReac Unknown severe Verified 02/16/21 15:27 vomiting Exam Const: General: cooperative, healthy appearing, comfortable, well developed and alert HENMT: Head: normal to inspection, normocephalic and atraumatic Ears: hearing grossly normal bilaterally, external ears normal, TM's normal bilaterally and EAC's normal General nose exam: Normal external nose present, Normal nares present, No nasal polyps p
--- NOTE | 2021-02-26 15:21 | WPDANESEPPF ---
Anes - Initial Pre Proc Eval Procedure: Operation Date: 02/27/21 08:00 Proposed Procedures p Bilateral Inferior Turbinectomy with Outfracture, Excision Nasopharyngeal Cyst, Resection Left Kristan Bullosa, Right Sphenoidotomy, - Panfilo Segura MD s Endoscopic Septoplasty - Panfilo Segura MD Date/Time: 02/26/21 15:21 Surgeon: Panfilo Segura MD Pre Op Diagnosis: chronic sinusitis Patient Data Age: 50 Gender: F Height: 1.65 m Weight: 77 kg Allergies Allergy/AdvReac Type Severity Reaction Status Date / Time Sulfa (Sulfonamide Allergy Unknown Hives Verified 02/27/21 06:30 Antibiotics) clindamycin AdvReac Severe Nausea and Verified 02/27/21 06:30 Vomiting morphine AdvReac Unknown severe Verified 02/27/21 06:30 vomiting Home Medications Medication Instructions Recorded Confirmed Type albuterol sulfate 90 mcg/actuation 1 inhalation INHALATION Q4H PRN 03/22/19 02/16/21 History aerosol inhaler aripiprazole 400 mg intramuscular 400 mg IM MONTHLY each 03/22/19 02/16/21 History suspension,extended release bupropion HCl 150 mg 24 hr tablet, 150 mg PO QAM 03/22/19 02/27/21 History extended release calcium carbonate 500 mg-vitamin 1 tablet PO DAILY 03/22/19 02/27/21 History D3 10 mcg (400 unit) tablet desvenlafaxine succinate 100 mg 100 mg PO DAILY 03/22/19 02/27/21 History tablet,extended release 24 hr levothyroxine 125 mcg tablet 125 mcg PO DAILY 03/22/19 02/27/21 History linaclotide 145 mcg capsule 145 mcg PO DAILY 03/22/19 02/27/21 History multivitamin 1 tablet PO DAILY 03/22/19 02/27/21 History oxycodone-acetaminophen 10 mg-325 1 tablet PO Q8H PRN 03/22/19 02/27/21 History mg tablet simvastatin 20 mg tablet 20 mg PO DAILY 03/22/19 02/27/21 History sumatriptan succinate 100 mg tablet 100 mg PO DIRECTED PRN 03/22/19 02/16/21 History budesonide-formoterol HFA 160 See Rx Instructions .ROUTE 12/25/20 02/16/21 Rx mcg-4.5 mcg/actuation aerosol .COMPLEX #30.6 g inhaler cyclobenzaprine 10 mg PO Q8-10H PRN 02/16/21 02/16/21 History furosemide 20 mg PO DAILY 02/16/21 02/27/21 History gabapentin 300 mg PO BID 02/16/21 02/27/21 History iron-folic [id number]-[id number]-biotin 1 cap PO DAILY 02/16/21 02/27/21 History modafinil 200 mg PO BID 02/16/21 02/27/21 History omeprazole 40 mg PO DAILY 02/16/21 02/27/21 History potassium chloride 10 meq PO DAILY 02/16/21 02/27/21 History vitamin B complex [B 1 tablet PO DAILY 02/16/21 02/27/21 History Complex-Vitamin B12] Patient hx anesthesia problems: none Family hx anesthesia problems: none Results Review: All pre-operative results and documents have been reviewed as part of the pre-operative evaluation. [facility] Past Medical History Medical History (Updated 02/26/21 @ 15:24 by Tone Hurley MD) Anxiety Asthma Bipolar 1 disorder Chronic cough Chronic narcotic use Common variable immunodeficiency, unspecified COPD (chronic obstructive pulmonary disease) Depression Gallbladder & bile duct stone with obstruction Kidney abscess Narcolepsy Nasal obstruction Nasal septal deviation Primary narcolepsy without cataplexy Recurrent infections Status post nephrectomy Throat pain Tobacco abuse Surgical History Surgical History H/O gastric bypass Social History Social History Social History: pt stated smoke a half pack a day Smoking packs per day: 0.05 Smoking cigarettes per day: 1.0 Years smoked: 10 Smoking pack-years: 0.50 Smoking status: Current every day smoker Tobacco type: cigarettes Substance use: never Substance use type: does not use Living arrangements: with family Spiritual care concerns: No Anes - Eval Final PreProcedure Day of Procedure 02/26/21 15:21 Patient weight: overweight Heart: regular rate and rhythm Lungs: clear to auscultation and normal air movement Airway: Mallampati scale class II N
[2021-02-27] VITALS (8 sets, daily range): BP systolic 113–144; BP diastolic 56–69; PULSE 67–80; RESP 16–20; TEMP 36.4–36.9; O2SAT 94–100
[2021-02-27] MEDS: ACETAMINOPHEN 500 MG TABLET 1000 MG PO (06:41)
[2021-02-27] MEDS: LACTATED RINGERS 1,000 ML 30 ML IV CONT ×2 (06:54→09:32)
--- NOTE | 2021-02-27 07:07 | WPDHPUPDATE1 ---
History and Physical Update Update Date/Time: 02/27/21 07:07 History and Physical has been reviewed, including an updated exam of the patient. There are NO changes in the patient's condition. Risks, benefits, and alternatives have been discussed and questions answered. Patient agrees to proceed with procedure.
[2021-02-27] MEDS: ceFAZolin 2 GM/D5W 50 ML 2 GM/50 ML BAG IVPB (08:12)
[2021-02-27] MEDS: OXYMETAZOLINE HCL 0.05% NAS 15 ML BTL (*BKC) 1 SPRAY NASAL (08:14)
[2021-02-27] MEDS: LIDO 1%/EPINEPHRINE 1:100,000 50 ML VIAL INFILTRATE (08:15)
[2021-02-27] MEDS: BACITRACIN OINTMENT 15 GM TUBE 1 APPLIC TOPICAL (09:11)
--- NOTE | 2021-02-27 09:42 | W.PM.PROC2 ---
Procedure Note - Detailed Date of Procedure 02/27/21 Pre-op Diagnosis chronic sinusitis, postnasal drip, nasopharyngeal cyst, nasal obstruction obstruction, septal deviation, inferior turbinate hypertrophy, left malik bullosa Post-op Diagnosis same Procedure Performed Resection of nasopharyngeal cyst, right sphenoidotomy, bilateral inferior turban night reduction submucosally with outfracture, left malik bullosa resection, endoscopic assisted septoplasty Surgeon Panfilo Segura MD Anesthesia general Indications See above Findings Turbinate hypertrophy well reduced left septal deviation well straightened no concomitant perforations nasopharyngeal lesion somewhat solid and cystic sent for biopsy as well. Resected well right sphenoidotomy with no tissue noted 70 discrete 70 degree scope utilized. Malik easily resected Description of Procedure Patient correctly identified consent verified. Patient brought to operating room. Time-out performed. General anesthesia induced endotracheal tube secured the airway and taped to the left lower lip. Patient prepped and draped for the aforementioned procedure. Imaging reviewed again. Second time-out performed. Afrin-soaked pledgets placed in the bilateral nasal passages allowed to sit for 5 minutes. Pledgets removed. 0 degree endoscope utilized with the aforementioned findings noted 15 cc of 1% lidocaine with 1 to 875254 parts epinephrine was injected in the bilateral septum bilateral inferior turbinates left middle turbinates/malik. Fifteen blade utilized to make [place] incision on the left left mucoperichondrial flap elevated with 7 Serbian suction septum transected near the bony portion right mucoperichondrial flap elevated with 7 Serbian suction bony septum which was severely deviated to the left removed with Blaze Jones scissors and Zulma forceps a small perforations bilaterally none opposing. Turbinates entered anteriorly using the turbinate 2 mm microdebrider blade debrided submucosally outfracture with a [place] elevator right sphenoidotomy performed transnasally the middle and superior turbinates were lateralized pledget placed for 5 minutes then removed using a caudal elevator the sphenoid os was encountered widened with 1 in 3 [place] at this point a 70 degree endoscope was utilized to view inside the sphenoid sinus no tissue was noted. The nasopharyngeal lesion was somewhat more solid than expected did have cystic components that appeared to have purulence in them. This was biopsied and then removed with a microdebrider and cauterized using Bovie suction electrocautery at a setting of 12. The left malik was then incised inferiorly using a sickle blade removed with straight through cut microdebrider a small remnant stump of the resected portion was cauterized. The bilateral nasal passages were irrigated and suction to the posterior choana hemostasis was excellent. [place] incision closed with 2 interrupted 5 0 fast gut sutures. Pike splints were then placed with a small amount of mupirocin on. They were sutured anteriorly using a 3-0 nylon suture mattressed. Tied on the left side. This marked end of the procedure. Total blood loss at most 20 cc. Care the patient was turned over to Anesthesiology. I performed all dictated portions of the procedure. Estimated Blood Loss -20.0 Drains No Packing No Pathology yes Complications No immediate complications Condition stable Disposition PACU
== END 2021-02-27 11:00 | disposition home or self-care (01) ==
PROVIDERS: PCP Student in an Organized Health Care Education/Training Program; Visit Provider Otolaryngology
PROC: (CPT 31240; principal; 2021-02-27 08:00)
PROC: (CPT 30520; 2021-02-27 08:00)
DX: J32.9 Chronic sinusitis, unspecified (principal); J34.2 Deviated nasal septum; J34.89 Other specified disorders of nose and nasal sinuses; R09.81 Nasal congestion; J34.3 Hypertrophy of nasal turbinates; J35.02 Chronic adenoiditis; J44.9 Chronic obstructive pulmonary disease, unspecified; F41.8 Other specified anxiety disorders; D83.9 Common variable immunodeficiency, unspecified; F31.9 Bipolar disorder, unspecified; F41.9 Anxiety disorder, unspecified; Z98.84 Bariatric surgery status; F17.210 Nicotine dependence, cigarettes, uncomplicated; Z79.51 Long term (current) use of inhaled steroids
CPT/HCPCS: 31240; 31287; 30140; 30520; 88305; A9270; J0330; J0690; J1100; J1170; J2250; J2405; J2704; J3010; J7120

== ENCOUNTER 2022-08-20 14:30 | Outpatient (CLI) | payer MEDICARE, SELFPAY ==
--- NOTE | ~2022-08-20 | US_ITS ---
EXAMINATION: US venous doppler LE RT DATE: 08/20/2022 14:52 INDICATION: Right lower limb pain and swelling. TECHNIQUE: Grayscale ultrasound images without and with compression and Doppler ultrasound images of the right lower extremity veins were obtained. COMPARISON: None. FINDINGS: The visualized portions of right common femoral vein, profunda (deep) femoral vein, femoral vein, pop liteal vein, peroneal veins, posterior tibial veins, and greater saphenous vein outflow are patent. IMPRESSION: 1. No deep venous thrombosis. Reviewed, dictated and finalized at location A.
== END 2022-08-20 14:31 ==
PROVIDERS: PCP Student in an Organized Health Care Education/Training Program; Visit Provider Nurse Practitioner
DX: M79.661 Pain in right lower leg (principal); M79.89 Other specified soft tissue disorders
CPT/HCPCS: 93971

== ENCOUNTER 2023-10-02 10:03 | Outpatient (CLI) | payer MEDICARE, SELFPAY ==
--- NOTE | ~2023-10-02 | CT_ITS ---
EXAMINATION: CT lung screening DATE: 10/02/2023 10:26 INDICATION: Personal history of nicotine dependence TECHNIQUE: Computed tomography (CT) of the chest was performed without intravenous contrast. The dose -length product was 199.09 mGy-cm. Automated exposure control and iterative reconstruction technique were employed. COMPARISON: CT dated 09/01/2013 FINDINGS: There are changes of gastric bypass. No significant pleural or pericardial effusion. No tho racic lymphadenopathy. No significant vascular abnormality. Calcified granulomas of the spleen. Gallb ladder not definitely visualized. There is a 4 mm fissural nodule along the minor fissure. No endobro nchial lesions. No pneumothorax. 2 mm right upper lobe nodule. Mild thoracic spondylosis. No acute os seous abnormality. IMPRESSION: 1. Lung-RADS category 2: Benign appearance or behavior. Continue annual screening with noncontrast lo w-dose chest CT in 12 months. Reviewed, dictated and finalized at location B. IMPRESSION: 1. Lung-RADS category 2: Benign appearance or behavior. Continue annual screeni ng with noncontrast low-dose chest CT in 12 months.
== END 2023-10-02 10:04 | disposition home or self-care (01) ==
PROVIDERS: Visit Provider Internal Medicine Critical Care Medicine
DX: Z12.2 Encounter for screening for malignant neoplasm of respiratory organs (principal); Z87.891 Personal history of nicotine dependence
CPT/HCPCS: 71271